=== PATIENT | male | born 1955 | race Two or more races ===

== ENCOUNTER 2023-06-01 08:12 | Inpatient (IN) | payer MEDICARE, MEDICAID ==
[~2023-06-01] VITALS: Ht 182.9 cm; Wt 105.8 kg
[2023-06-01] MEDS ORDERED: KETOROLAC TROMETH 60MG/2ML VIAL IM ONE (10:30)
[2023-06-01 19:30] VITALS: PULSE 65; RESP 20; O2SAT 98
[2023-06-01] MEDS ORDERED: LORazepam 0.5 MG TAB PO ONE (20:00)
[2023-06-01] MEDS ORDERED: metFORMIN HYDROCHLORIDE 500 MG TAB PO ONE (22:00)
[2023-06-02] MEDS ORDERED: metFORMIN HYDROCHLORIDE 500 MG TAB PO ONE (12:45)
[2023-06-02] MEDS ORDERED: LORazepam 0.5 MG TAB PO ONE ×2 (12:45→20:45)
[2023-06-02 14:31] LABS: Hemoglobin 12.6 g/dL (13.5-17.5)
[2023-06-02 14:32] LABS: Hematocrit 38.6 % (41.0-53.0); Mean Corpuscular Hemoglobin 30.1 pg (28.0-32.0); Mean Corpuscular Hgb Conc. 32.6 g/dL (32.0-36.0); Mean Corpuscular Volume 92.3 fL (80.0-100.0); Red Blood Cells 4.18 10^6/uL (4.5-5.90)
[2023-06-02 14:45] LABS: Albumin 4.2 g/dL (3.2-4.8); Alkaline Phosphatase 71 U/L (46-116); Anion Gap 6 (5-15); Aspartate Aminotransferase 22 U/L (13-40); BUN/Creatinine Ratio 15.6 (10.0-20.0); Blood Urea Nitrogen 14 mg/dL (9-23); Calcium 9.2 mg/dL (8.5-10.1); Carbon Dioxide 30 mmol/L (20-30); Chloride 107 mmol/L (98-107); Glucose 162 mg/dL (74-106); Potassium 3.8 mmol/L (3.5-5.1); Sodium 143 mmol/L (136-145)
[2023-06-02 14:46] LABS: Bilirubin, Total 0.6 mg/dL (0.2-1.0); Total Protein 6.9 g/dL (5.7-8.2)
[2023-06-02 14:47] LABS: White Blood Cell 32.8 10^3/uL (4.4-10.8)
[2023-06-02 14:48] LABS: Basophils % (manual) 0 (0.0-2.0); Blast Cells 0; Promyelocytes % 0
[2023-06-02 14:51] LABS: Alanine Aminotransferase 9 U/L (7-40)
[2023-06-02] MEDS ORDERED: SODIUM CHLORIDE 0.9% 1,000 ML IV ONE ×2 (15:00→15:15)
[2023-06-02 15:01] LABS: Band Neutrophils % (manual) 18; Eosinophils % (manual) 2 (0-7); Lymphocytes % (manual) 9 (10.0-50.0); Metamyelocytes % 8; Monocytes % (manual) 7 (0-12); Myelocytes % 6; Reactive Lymphocytes 1
[2023-06-02 15:03] LABS: Anisocytosis Slight; Platelet Estimate Adequate
[2023-06-02] MEDS ORDERED: DEXTROSE (50%) 50ML SYRG IV PRN (15:15)
[2023-06-02] MEDS ORDERED: cefTRIAXone 1GM/50ML D5W 50 ML IV ONE (15:30)
[2023-06-02 15:40] LABS: Triglycerides 138 mg/dL (< 150)
[2023-06-02 15:41] LABS: LDL Cholesterol 28 mg/dL (< 100)
[2023-06-02 15:42] LABS: Cholesterol 73 mg/dL (< 200); HDL Cholesterol 21 mg/dL (40-59)
[2023-06-02] MEDS: SODIUM CHLORIDE 0.9% 1,000 ML IV SCH (16:07)
[2023-06-02 17:31] VITALS: BP 129/76; PULSE 66; RESP 17; TEMP 98.6; O2SAT 97
[2023-06-02] MEDS: ACCU-CHEK COMFORT CURVE STRIP VI SCH ×2 (17:46→20:44)
[2023-06-02] MEDS: InsuLIN REG 1unit/0.01ml Soln (100units/ml) SC SCH ×2 (17:54→20:43)
[2023-06-02] MEDS ORDERED: METF-370 PO (18:03)
[2023-06-02] MEDS ORDERED: LORA-1121 PO (18:03)
[2023-06-02] MEDS ORDERED: HYDR-4072 PO (18:05)
[2023-06-02 19:19] LABS: Urine Bacteria NONE SEEN /hpf (None Seen); Urine Blood TRACE /uL (Negative); Urine Clarity Clear (Clear); Urine Color Yellow (Yellow); Urine Protein, UAD Negative (Negative); Urine Specific Gravity 1.025 (1.001-1.035); Urine Urobilinogen Normal (Negative); Urine WBC 1 /hpf (0 - 3); Urine pH 5.5 (5.0-8.0)
[2023-06-02 20:00] VITALS: BP 133/74; PULSE 82; RESP 18; RESP 71; TEMP 97.2
[2023-06-02 22:00] VITALS: BP 146/85; PULSE 67; RESP 17; TEMP 97.7; O2SAT 95
[2023-06-03] MEDS: SODIUM CHLORIDE 0.9% 1,000 ML IV SCH ×2 (04:35→17:55)
[2023-06-03] MEDS: InsuLIN REG 1unit/0.01ml Soln (100units/ml) SC SCH ×4 (06:38→21:33)
[2023-06-03] MEDS: ACCU-CHEK COMFORT CURVE STRIP VI SCH ×4 (06:38→21:29)
[2023-06-03 07:32] LABS: Red Cell Distribution Width 15.2 % (11.8-14.3)
[2023-06-03 07:40] LABS: Hematocrit 36.5 % (41.0-53.0); Mean Corpuscular Hemoglobin 30.1 pg (28.0-32.0); Mean Corpuscular Hgb Conc. 32.8 g/dL (32.0-36.0); Mean Corpuscular Volume 91.8 fL (80.0-100.0); Red Blood Cells 3.98 10^6/uL (4.5-5.90)
[2023-06-03 07:52] LABS: Alanine Aminotransferase 10 U/L (7-40); Albumin 3.8 g/dL (3.2-4.8); Alkaline Phosphatase 65 U/L (46-116); Anion Gap 6 (5-15); Aspartate Aminotransferase 18 U/L (13-40); BUN/Creatinine Ratio 14.3 (10.0-20.0); Bilirubin, Total 0.6 mg/dL (0.2-1.0); Blood Urea Nitrogen 11 mg/dL (9-23); Calcium 8.7 mg/dL (8.5-10.1); Carbon Dioxide 26 mmol/L (20-30); Chloride 107 mmol/L (98-107); Glucose 183 mg/dL (74-106); Potassium 3.9 mmol/L (3.5-5.1); Sodium 139 mmol/L (136-145); Total Protein 6.1 g/dL (5.7-8.2)
[2023-06-03 07:55] LABS: White Blood Cell 35.1 10^3/uL (4.4-10.8)
[2023-06-03 07:57] LABS: Basophils % (manual) 0 (0.0-2.0); Blast Cells 0; Promyelocytes % 0
[2023-06-03] MEDS: metFORMIN HYDROCHLORIDE 500 MG TAB PO SCH ×2 (08:15→17:42)
[2023-06-03] MEDS: cefTRIAXone 1GM/50ML D5W 50 ML IV SCH (08:17)
[2023-06-03 08:59] LABS: Lymphocytes % (manual) 10 (10.0-50.0); Metamyelocytes % 4; Monocytes % (manual) 5 (0-12); Myelocytes % 3; Reactive Lymphocytes 1
[2023-06-03 09:01] LABS: Anisocytosis Slight; Band Neutrophils % (manual) 23; Eosinophils % (manual) 2 (0-7); Platelet Estimate Adequate
[2023-06-03 09:08] VITALS: BP 128/69; PULSE 73; RESP 20; TEMP 98; O2SAT 94
[2023-06-03] MEDS: ENOXAPARIN SOD 40 MG/0.4 ML SYRINGE SC SCH (10:12)
[2023-06-03] MEDS ORDERED: VANCOMYCIN 1GM/250ML 250 ML IV ONE (11:15)
[2023-06-03] MEDS ORDERED: VANCOMYCIN PER PHARMACY 0 MG IV SCH (11:15)
[2023-06-03 13:10] VITALS: BP 132/79; PULSE 59; RESP 20; TEMP 98.7; O2SAT 95
[2023-06-03] MEDS: LORazepam 0.5 MG TAB PO PRN (13:24)
[2023-06-03 17:12] VITALS: BP 134/79; PULSE 69; RESP 20; TEMP 99.2; O2SAT 95
[2023-06-03] MEDS: VANCOMYCIN 1GM/250ML 250 ML IV SCH (20:00)
[2023-06-03] MEDS ORDERED: traZODone HCL 50 MG TAB PO ONE (20:45)
[2023-06-03] MEDS: ACETAMINOPHEN 325 MG TAB PO PRN (21:25)
[2023-06-03 22:00] VITALS: BP 108/70; PULSE 59; RESP 15; TEMP 98.6; O2SAT 95
[2023-06-04] MEDS: VANCOMYCIN 1GM/250ML 250 ML IV SCH ×3 (04:00→20:26)
[2023-06-04] MEDS: ACCU-CHEK COMFORT CURVE STRIP VI SCH ×4 (06:18→21:57)
[2023-06-04] MEDS: InsuLIN REG 1unit/0.01ml Soln (100units/ml) SC SCH ×4 (06:18→21:57)
[2023-06-04] MEDS: SODIUM CHLORIDE 0.9% 1,000 ML IV SCH ×2 (06:19→20:35)
[2023-06-04 08:00] VITALS: BP 113/66; PULSE 67; RESP 20; TEMP 98.8; O2SAT 95
[2023-06-04] MEDS: metFORMIN HYDROCHLORIDE 500 MG TAB PO SCH ×2 (08:59→17:36)
[2023-06-04] MEDS: ENOXAPARIN SOD 40 MG/0.4 ML SYRINGE SC SCH (08:59)
[2023-06-04 09:00] VITALS: BP 113/66; PULSE 67; RESP 20; TEMP 98.8; O2SAT 95
[2023-06-04] MEDS: LORazepam 0.5 MG TAB PO PRN ×2 (09:09→21:55)
[2023-06-04 09:37] LABS: Hepatitis B Surface Antigen Negative (Negative)
[2023-06-04 09:58] LABS: Hepatitis C Antibody Negative (Negative)
[2023-06-04 13:00] VITALS: BP 132/83; PULSE 69; RESP 20; TEMP 98.9; O2SAT 95
[2023-06-04] MEDS: cefTRIAXone 1GM/50ML D5W 50 ML IV SCH (13:43)
[2023-06-04 16:37] VITALS: BP 119/74; PULSE 60; RESP 18; TEMP 98.2; O2SAT 95
[2023-06-04] MEDS: ACETAMINOPHEN 325 MG TAB PO PRN (20:28)
[2023-06-04] MEDS: hydroxyUREA 500 MG CAP PO SCH (22:00)
[2023-06-04 22:15] VITALS: BP 127/70; PULSE 60; RESP 20; TEMP 98.5; O2SAT 95
[2023-06-05] VITALS (8 sets, daily range): BP systolic 95–133; BP diastolic 46–82; PULSE 59–68; RESP 12–20; TEMP 97.4–98.8; O2SAT 90–100
[2023-06-05] MEDS: VANCOMYCIN 1GM/250ML 250 ML IV SCH ×3 (04:00→23:01)
[2023-06-05] MEDS: ACCU-CHEK COMFORT CURVE STRIP VI SCH ×4 (06:24→23:03)
[2023-06-05] MEDS: InsuLIN REG 1unit/0.01ml Soln (100units/ml) SC SCH ×4 (06:25→23:05)
[2023-06-05] MEDS: cefTRIAXone 1GM/50ML D5W 50 ML IV SCH (08:26)
[2023-06-05] MEDS: metFORMIN HYDROCHLORIDE 500 MG TAB PO SCH ×2 (08:26→17:22)
[2023-06-05] MEDS: ENOXAPARIN SOD 40 MG/0.4 ML SYRINGE SC SCH (09:36)
[2023-06-05] MEDS: SODIUM CHLORIDE 0.9% 1,000 ML IV SCH ×2 (09:36→16:07)
[2023-06-05] MEDS: LORazepam 0.5 MG TAB PO PRN ×2 (09:58→23:03)
[2023-06-05] MEDS ORDERED: ONDANSETRON ODT 4 MG TAB PO PRN (10:45)
[2023-06-05] MEDS: hydroxyUREA 500 MG CAP PO SCH ×2 (10:46→23:02)
[2023-06-05 11:52] LABS: Hemoglobin 12.8 g/dL (13.5-17.5); Mean Corpuscular Hemoglobin 29.8 pg (28.0-32.0); Mean Corpuscular Hgb Conc. 31.5 g/dL (32.0-36.0); Mean Corpuscular Volume 94.5 fL (80.0-100.0)
[2023-06-05 11:55] LABS: Hematocrit 40.6 % (41.0-53.0); Red Blood Cells 4.29 10^6/uL (4.5-5.90); Red Cell Distribution Width 15.5 % (11.8-14.3)
[2023-06-05 12:09] LABS: White Blood Cell 51.3 10^3/uL (4.4-10.8)
[2023-06-05 12:12] LABS: Basophils % (manual) 0 (0.0-2.0); Promyelocytes % 0; Reactive Lymphocytes 0
[2023-06-05 12:22] LABS: INR 1.09 (0.9-1.15); Partial Thromboplastin Time 29.1 SEC (24.5-34.5); Prothrombin Time 11.4 sec (9.3-11.8)
[2023-06-05 12:30] LABS: COVID19 ANTIGEN SOFIA FIA NEGATIVE (NEGATIVE)
[2023-06-05 12:48] LABS: Band Neutrophils % (manual) 1; Blast Cells 3; Eosinophils % (manual) 2 (0-7); Lymphocytes % (manual) 7 (10.0-50.0); Metamyelocytes % 30; Monocytes % (manual) 5 (0-12); Myelocytes % 15; Platelet Estimate Adequate
[2023-06-05] MEDS ORDERED: LIDOCAINE 1% (LOCAL ANESTH.) PF 5ml SDV ID ONE (16:00)
[2023-06-05] MEDS: ACETAMINOPHEN 325 MG TAB PO PRN ×2 (16:08→23:03)
[2023-06-05] MEDS: SODIUM CHLOR 0.9% PF (SALINE LOCK) 10ML VIAL/SYR IV SCH (23:02)
[2023-06-05] MEDS: PANTOPRAZOLE 40 MG TAB PO SCH (23:03)
[2023-06-06 05:00] VITALS: BP 109/56; PULSE 60; RESP 16; TEMP 98.4; O2SAT 91
[2023-06-06] MEDS ORDERED: VANCOMYCIN 1GM/250ML 250 ML IV SCH (06:15)
[2023-06-06] MEDS: VANCOMYCIN 1GM/250ML 250 ML IV SCH ×3 (07:53→22:56)
[2023-06-06] MEDS: ACETAMINOPHEN 325 MG TAB PO PRN (07:54)
[2023-06-06] MEDS: ACCU-CHEK COMFORT CURVE STRIP VI SCH ×4 (07:54→22:46)
[2023-06-06] MEDS: InsuLIN REG 1unit/0.01ml Soln (100units/ml) SC SCH ×4 (07:55→22:46)
[2023-06-06 08:58] VITALS: BP 110/62; PULSE 97; RESP 20; TEMP 97.8; O2SAT 97
[2023-06-06] MEDS: metFORMIN HYDROCHLORIDE 500 MG TAB PO SCH ×2 (09:37→17:48)
[2023-06-06] MEDS: hydroxyUREA 500 MG CAP PO SCH ×2 (09:37→22:42)
[2023-06-06] MEDS: ENOXAPARIN SOD 40 MG/0.4 ML SYRINGE SC SCH (09:37)
[2023-06-06] MEDS: cefTRIAXone 1GM/50ML D5W 50 ML IV SCH (09:37)
[2023-06-06] MEDS: PANTOPRAZOLE 40 MG TAB PO SCH ×2 (09:37→22:42)
[2023-06-06] MEDS: SODIUM CHLOR 0.9% PF (SALINE LOCK) 10ML VIAL/SYR IV SCH ×2 (09:39→22:00)
[2023-06-06] MEDS: LORazepam 0.5 MG TAB PO PRN ×2 (11:27→22:54)
[2023-06-06 11:47] LABS: Anion Gap 5 (5-15); Calcium 8.9 mg/dL (8.7-10.4); Carbon Dioxide 25 mmol/L (20-30); Chloride 108 mmol/L (98-107); Hematocrit 38.7 % (41.0-53.0); Hemoglobin 12.5 g/dL (13.5-17.5); Mean Corpuscular Hemoglobin 30.2 pg (28.0-32.0); Mean Corpuscular Hgb Conc. 32.3 g/dL (32.0-36.0); Mean Corpuscular Volume 93.5 fL (80.0-100.0); Potassium 4.2 mmol/L (3.5-5.1); Red Blood Cells 4.14 10^6/uL (4.5-5.90); Red Cell Distribution Width 15.1 % (11.8-14.3); Sodium 138 mmol/L (136-145)
[2023-06-06 11:53] LABS: White Blood Cell 51.5 10^3/uL (4.4-10.8)
[2023-06-06 11:55] LABS: Blood Urea Nitrogen 7 mg/dL (9-23); Glucose 162 mg/dL (74-106)
[2023-06-06 11:56] LABS: Alkaline Phosphatase 67 U/L (46-116)
[2023-06-06 11:57] LABS: Albumin 3.9 g/dL (3.2-4.8); Aspartate Aminotransferase 20 U/L (13-40); Band Neutrophils % (manual) 0; Basophils % (manual) 0 (0.0-2.0); Bilirubin, Total 0.3 mg/dL (0.2-1.0); Blast Cells 0; Promyelocytes % 0; Reactive Lymphocytes 0; Total Protein 6.3 g/dL (5.7-8.2)
[2023-06-06 12:01] LABS: Alanine Aminotransferase < 9 U/L (7-40)
[2023-06-06 13:00] VITALS: BP 121/72; PULSE 66; RESP 19; TEMP 97.7; O2SAT 93
[2023-06-06] MEDS: SODIUM CHLORIDE 0.9% 1,000 ML IV SCH (13:10)
[2023-06-06 14:09] LABS: Eosinophils % (manual) 1 (0-7); Lymphocytes % (manual) 6 (10.0-50.0); Metamyelocytes % 1; Monocytes % (manual) 2 (0-12); Myelocytes % 15
[2023-06-06 14:10] LABS: Platelet Estimate Adequate
[2023-06-06 16:36] VITALS: BP 119/74; PULSE 77; RESP 20; TEMP 97.6; O2SAT 96
[2023-06-06 20:00] VITALS: BP 125/74; PULSE 64; RESP 18; TEMP 98.2; O2SAT 95
[2023-06-06 22:00] VITALS: BP 125/74; PULSE 64; RESP 18; TEMP 98.2; O2SAT 95
[2023-06-07] MEDS: SODIUM CHLORIDE 0.9% 1,000 ML IV SCH ×2 (01:55→15:15)
[2023-06-07 05:00] VITALS: BP 107/52; PULSE 59; RESP 18; TEMP 98.3; O2SAT 96
[2023-06-07] MEDS: VANCOMYCIN 1GM/250ML 250 ML IV SCH ×2 (06:56→15:30)
[2023-06-07] MEDS: ACCU-CHEK COMFORT CURVE STRIP VI SCH ×4 (07:00→22:43)
[2023-06-07] MEDS: InsuLIN REG 1unit/0.01ml Soln (100units/ml) SC SCH ×4 (07:00→22:45)
[2023-06-07 09:00] VITALS: BP 133/85; PULSE 63; RESP 18; TEMP 97.9; O2SAT 97
[2023-06-07] MEDS: metFORMIN HYDROCHLORIDE 500 MG TAB PO SCH ×2 (09:04→18:53)
[2023-06-07] MEDS: PANTOPRAZOLE 40 MG TAB PO SCH ×2 (09:04→22:48)
[2023-06-07] MEDS: cefTRIAXone 1GM/50ML D5W 50 ML IV SCH (09:05)
[2023-06-07] MEDS: hydroxyUREA 500 MG CAP PO SCH ×2 (09:05→22:54)
[2023-06-07] MEDS: ENOXAPARIN SOD 40 MG/0.4 ML SYRINGE SC SCH (09:05)
[2023-06-07] MEDS: SODIUM CHLOR 0.9% PF (SALINE LOCK) 10ML VIAL/SYR IV SCH ×2 (09:05→22:00)
[2023-06-07] MEDS: LORazepam 0.5 MG TAB PO PRN ×2 (11:01→22:59)
[2023-06-07 13:00] VITALS: BP 125/79; PULSE 55; RESP 17; TEMP 97.5; O2SAT 96
[2023-06-07 15:48] LABS: Mean Corpuscular Volume 91.7 fL (80.0-100.0)
[2023-06-07 15:51] LABS: Hemoglobin 12.4 g/dL (13.5-17.5); Mean Corpuscular Hemoglobin 29.8 pg (28.0-32.0); Mean Corpuscular Hgb Conc. 32.5 g/dL (32.0-36.0); Red Blood Cells 4.15 10^6/uL (4.5-5.90); Red Cell Distribution Width 15.2 % (11.8-14.3)
[2023-06-07 16:05] LABS: Alanine Aminotransferase 11 U/L (7-40); Alkaline Phosphatase 65 U/L (46-116); Anion Gap 7 (5-15); Aspartate Aminotransferase 24 U/L (13-40); BUN/Creatinine Ratio 12.6 (10.0-20.0); Blood Urea Nitrogen 12 mg/dL (9-23); Calcium 9.3 mg/dL (8.5-10.1); Carbon Dioxide 27 mmol/L (20-30); Chloride 105 mmol/L (98-107); Glucose 129 mg/dL (74-106); Potassium 4.2 mmol/L (3.5-5.1); Sodium 139 mmol/L (136-145)
[2023-06-07 16:06] LABS: Bilirubin, Total 0.2 mg/dL (0.2-1.0); Total Protein 6.2 g/dL (5.7-8.2)
[2023-06-07 16:25] LABS: Blast Cells 0; Promyelocytes % 0
[2023-06-07 17:15] VITALS: BP 129/75; PULSE 68; RESP 16; TEMP 97.9; O2SAT 98
[2023-06-07 19:06] LABS: Band Neutrophils % (manual) 22
[2023-06-07 19:07] LABS: Basophils % (manual) 0 (0.0-2.0); Eosinophils % (manual) 3 (0-7); Lymphocytes % (manual) 4 (10.0-50.0); Metamyelocytes % 9; Monocytes % (manual) 3 (0-12); Myelocytes % 8; Platelet Estimate Adequate; Reactive Lymphocytes 3
[2023-06-07 20:00] VITALS: BP 131/79; PULSE 71; RESP 18; TEMP 98.3; O2SAT 95
[2023-06-07 20:22] VITALS: BP 125/66; PULSE 69; RESP 20; TEMP 98.2; O2SAT 96
[2023-06-08] MEDS: VANCOMYCIN 1GM/250ML 250 ML IV SCH ×3 (00:59→22:29)
[2023-06-08] MEDS: SODIUM CHLORIDE 0.9% 1,000 ML IV SCH (04:35)
[2023-06-08] MEDS: InsuLIN REG 1unit/0.01ml Soln (100units/ml) SC SCH ×4 (06:48→22:33)
[2023-06-08] MEDS: ACCU-CHEK COMFORT CURVE STRIP VI SCH ×4 (06:49→22:18)
[2023-06-08 09:00] VITALS: BP 112/58; PULSE 63; RESP 20; TEMP 98.2; O2SAT 95
[2023-06-08] MEDS: metFORMIN HYDROCHLORIDE 500 MG TAB PO SCH ×2 (10:01→17:56)
[2023-06-08] MEDS: ENOXAPARIN SOD 40 MG/0.4 ML SYRINGE SC SCH (10:02)
[2023-06-08] MEDS: hydroxyUREA 500 MG CAP PO SCH ×2 (10:02→22:29)
[2023-06-08] MEDS: cefTRIAXone 1GM/50ML D5W 50 ML IV SCH (10:02)
[2023-06-08] MEDS: PANTOPRAZOLE 40 MG TAB PO SCH ×2 (10:02→22:08)
[2023-06-08] MEDS: SODIUM CHLOR 0.9% PF (SALINE LOCK) 10ML VIAL/SYR IV SCH ×2 (10:03→22:08)
[2023-06-08] MEDS: LORazepam 0.5 MG TAB PO PRN ×2 (11:08→22:17)
[2023-06-08 13:00] VITALS: BP 108/58; PULSE 66; RESP 20; TEMP 97.9; O2SAT 94
[2023-06-08 13:25] LABS: Basophils # (auto) 0.2 10 ^3/uL (0-0.2); Basophils % (auto) 0.4 % (0.0-2.0); Eosinophils # (auto) 0.9 10 ^3/uL (0-0.8); Eosinophils % (auto) 1.6 % (0.0-7.0); Hematocrit 40.1 % (41.0-53.0); Hemoglobin 12.8 g/dL (13.5-17.5); Lymphocytes # (auto) 3.4 10 ^3/uL (0.4-5.4); Lymphocytes % (auto) 6.6 % (10.0-50.0); Mean Corpuscular Hemoglobin 29.7 pg (28.0-32.0); Mean Corpuscular Hgb Conc. 31.9 g/dL (32.0-36.0); Mean Corpuscular Volume 93.1 fL (80.0-100.0); Monocytes # (auto) 2.6 10 ^3/uL (0-1.3); Monocytes % (auto) 5.1 % (0.0-12.0); Neutrophils # (auto) 45.2 10 ^3/uL (1.6-8.6); Neutrophils % (auto) 86.3 % (37.0-80.0); Red Blood Cells 4.31 10^6/uL (4.5-5.90); Red Cell Distribution Width 15.2 % (11.8-14.3)
[2023-06-08 13:28] LABS: White Blood Cell 52.4 10^3/uL (4.4-10.8)
[2023-06-08 13:32] LABS: Chloride 104 mmol/L (98-107); Potassium 4.5 mmol/L (3.5-5.1); Sodium 136 mmol/L (136-145)
[2023-06-08 13:33] LABS: Anion Gap 7 (5-15); Calcium 9.4 mg/dL (8.5-10.1); Carbon Dioxide 25 mmol/L (20-30)
[2023-06-08 13:38] LABS: BUN/Creatinine Ratio 10.7 (10.0-20.0); Blood Urea Nitrogen 9 mg/dL (9-23); Glucose 225 mg/dL (74-106)
[2023-06-08] MEDS: ACETAMINOPHEN 325 MG TAB PO PRN (13:45)
[2023-06-08 17:00] VITALS: BP 113/73; PULSE 65; RESP 20; TEMP 98.1; O2SAT 97
[2023-06-08 20:00] VITALS: RESP 18
[2023-06-08 23:07] VITALS: BP 108/81; PULSE 18; RESP 16; TEMP 98.4; O2SAT 96
[2023-06-09 06:41] LABS: Red Cell Distribution Width 14.9 % (11.8-14.3)
[2023-06-09 06:43] LABS: Hematocrit 38.4 % (41.0-53.0); Hemoglobin 12.4 g/dL (13.5-17.5); Mean Corpuscular Hemoglobin 29.9 pg (28.0-32.0); Mean Corpuscular Hgb Conc. 32.4 g/dL (32.0-36.0); Mean Corpuscular Volume 92.5 fL (80.0-100.0); Red Blood Cells 4.15 10^6/uL (4.5-5.90)
[2023-06-09 06:53] LABS: White Blood Cell 43.2 10^3/uL (4.4-10.8)
[2023-06-09 06:55] LABS: Basophils % (manual) 0 (0.0-2.0); Blast Cells 0; Myelocytes % 0; Reactive Lymphocytes 0
[2023-06-09] MEDS: ACCU-CHEK COMFORT CURVE STRIP VI SCH ×2 (07:13→11:30)
[2023-06-09] MEDS: VANCOMYCIN 1GM/250ML 250 ML IV SCH (07:15)
[2023-06-09] MEDS: InsuLIN REG 1unit/0.01ml Soln (100units/ml) SC SCH ×2 (07:21→11:30)
[2023-06-09 07:54] LABS: Band Neutrophils % (manual) 2; Eosinophils % (manual) 3 (0-7); Lymphocytes % (manual) 7 (10.0-50.0); Metamyelocytes % 9; Monocytes % (manual) 3 (0-12); Promyelocytes % 8
[2023-06-09 08:00] VITALS: PULSE 70; RESP 17; O2SAT 94
[2023-06-09 08:11] LABS: Platelet Estimate Adequate
[2023-06-09] MEDS: metFORMIN HYDROCHLORIDE 500 MG TAB PO SCH (08:59)
[2023-06-09] MEDS: cefTRIAXone 1GM/50ML D5W 50 ML IV SCH (08:59)
[2023-06-09] MEDS: ENOXAPARIN SOD 40 MG/0.4 ML SYRINGE SC SCH (08:59)
[2023-06-09] MEDS: ACETAMINOPHEN 325 MG TAB PO PRN (08:59)
[2023-06-09 09:00] VITALS: BP 110/58; PULSE 70; RESP 17; TEMP 98.1; O2SAT 94
[2023-06-09] MEDS: hydroxyUREA 500 MG CAP PO SCH (09:05)
[2023-06-09] MEDS: SODIUM CHLOR 0.9% PF (SALINE LOCK) 10ML VIAL/SYR IV SCH (09:05)
[2023-06-09] MEDS: LORazepam 0.5 MG TAB PO PRN (10:23)
[2023-06-09] MEDS: PANTOPRAZOLE 40 MG TAB PO SCH (10:25)
[2023-06-09 12:52] VITALS: BP 112/73; PULSE 59; RESP 17; TEMP 98.1; O2SAT 94
== END 2023-06-09 12:41 | disposition hospice, home (50) | DRG 872 ==
LOC: ER 08:12 → EDBD 08:12 → OVERFLOW 06-02 15:19 → WEST WING 06-02 17:22 → CENTRAL 06-05 20:00
PROVIDERS: ADMIT Nurse Practitioner Family; ATTEND Internal Medicine
PROC: 02HV33Z Insertion of Infusion Device into Superior Vena Cava, Percutaneous Approach (ICD-10-PCS; principal; 2023-06-05)
DX: A41.9 Sepsis, unspecified organism (principal); Z59.00 Homelessness unspecified; C92.10 Chronic myeloid leukemia, BCR/ABL-positive, not having achieved remission; E11.65 Type 2 diabetes mellitus with hyperglycemia; Z20.822 Contact with and (suspected) exposure to COVID-19; E66.01 Morbid (severe) obesity due to excess calories; E86.0 Dehydration; I10 Essential (primary) hypertension; F41.9 Anxiety disorder, unspecified; E88.09 Other disorders of plasma-protein metabolism, not elsewhere classified; Z66 Do not resuscitate; G89.29 Other chronic pain; Z68.31 Body mass index [BMI] 31.0-31.9, adult; Z89.512 Acquired absence of left leg below knee; Z89.511 Acquired absence of right leg below knee; Z99.3 Dependence on wheelchair; Z79.4 Long term (current) use of insulin; Z51.5 Encounter for palliative care
CPT/HCPCS: 36415; 36569; 70450; 71045; 72040; 80048; 80053; 80061; 80202; 81001; 82565; 82962; 83036; 83605; 83615; 84443; 85007; 85025; 85027; 85610; 85730; 86803; 87040; 87081; 87340; 87426; 97110; 97163; 97530; G0378; J0696; J1815; J1885; Q0162

== ENCOUNTER 2023-08-20 14:46 | Emergency (ER) | payer BC, MEDICAID ==
[~2023-08-20] VITALS: Ht 193 cm; Wt 100.0 kg
[~2023-08-20 14:46] MED LIST: HYDR-4072 PO; LORA-1121 PO; METF-370 PO
[2023-08-20 15:01] VITALS: BP 96/60; PULSE 85; RESP 18; O2SAT 95
[2023-08-20 15:19] LABS: Basophils # (auto) 0.6 10 ^3/uL (0-0.2); Nucleated Red Blood Cells % 0.1 %
[2023-08-20 15:23] LABS: Eosinophils # (auto) 0.6 10 ^3/uL (0-0.8); Hematocrit 37.4 % (41.0-53.0); Lymphocytes # (auto) 4.3 10 ^3/uL (0.4-5.4); Lymphocytes % (auto) 6.9 % (10.0-50.0); Mean Corpuscular Hemoglobin 29.8 pg (28.0-32.0); Mean Corpuscular Hgb Conc. 32.1 g/dL (32.0-36.0); Mean Corpuscular Volume 92.9 fL (80.0-100.0); Monocytes # (auto) 1.7 10 ^3/uL (0-1.3); Monocytes % (auto) 2.8 % (0.0-12.0); Neutrophils # (auto) 54.3 10 ^3/uL (1.6-8.6); Neutrophils % (auto) 88.3 % (37.0-80.0); Red Blood Cells 4.03 10^6/uL (4.5-5.90); Red Cell Distribution Width 15.8 % (11.8-14.3)
[2023-08-20 15:26] LABS: Chloride 98 mmol/L (98-107); Potassium 4.7 mmol/L (3.5-5.1); Sodium 130 mmol/L (136-145)
[2023-08-20 15:27] LABS: Anion Gap 11 (5-15); Carbon Dioxide 21 mmol/L (20-30)
[2023-08-20 15:28] LABS: Calcium 9.5 mg/dL (8.7-10.4)
[2023-08-20 15:33] LABS: BUN/Creatinine Ratio 12.6 (10.0-20.0); Blood Urea Nitrogen 13 mg/dL (9-23)
[2023-08-20 15:38] LABS: Glucose 448 mg/dL (74-106); White Blood Cell 61.5 10^3/uL (4.4-10.8)
[2023-08-20 16:19] LABS: Urine Epithelial Cast None Seen /hpf (<5)
[2023-08-20 16:39] LABS: Urine Bacteria NONE SEEN /hpf (None Seen); Urine Blood Negative /uL (Negative); Urine Clarity Clear (Clear); Urine Color Yellow (Yellow); Urine Hyaline Cast FEW /lpf (0 - 2); Urine Mucus FEW (None Seen); Urine Protein, UAD Negative (Negative); Urine Specific Gravity 1.033 (1.001-1.035); Urine Urobilinogen Normal (Negative); Urine WBC 1 /hpf (0 - 3)
[2023-08-20] MEDS ORDERED: SODIUM CHLORIDE 0.9% 1,000 ML IV ONE ×2 (17:30→20:15)
[2023-08-20] MEDS ORDERED: VANCOMYCIN 1GM/200ML 200 ML IV ONE (17:30)
[2023-08-20] MEDS ORDERED: InsuLIN REG 1unit/0.01ml Soln (100units/ml) IV ONE (17:45)
[2023-08-20] MEDS ORDERED: LORazepam 0.5 MG TAB PO ONE (18:15)
[2023-08-20 18:29] LABS: Lactic Acid w/Reflex 2.8 mmol/L (0.4-2.0)
== END 2023-08-20 21:30 | disposition left against medical advice (07) ==
LOC: ER 14:46
DX: D72.829 Elevated white blood cell count, unspecified (principal); E11.65 Type 2 diabetes mellitus with hyperglycemia; L03.012 Cellulitis of left finger; R53.1 Weakness; F41.9 Anxiety disorder, unspecified; Z79.899 Other long term (current) drug therapy
CPT/HCPCS: 36415; 73140; 80048; 81001; 82962; 83605; 85025; 96365; 96366; 96375; 99284; J1815; J3370

== ENCOUNTER 2023-09-25 11:17 | Emergency (ER) | payer BC, MEDICAID ==
[~2023-09-25] VITALS: Ht 193 cm; Wt 100.0 kg
[2023-09-25 11:17] VITALS: BP 122/63; PULSE 74; RESP 18; O2SAT 97
== END 2023-09-25 15:23 | disposition left against medical advice (07) ==
LOC: ER 11:17
DX: Z02.79 Encounter for issue of other medical certificate (principal); Z53.21 Procedure and treatment not carried out due to patient leaving prior to being seen by health care provider